=== PATIENT | female | born 1950 | race Two or more races ===

== ENCOUNTER 2021-06-28 13:02 | Emergency (ER) | payer OTHER ==
[~2021-06-28] VITALS: Ht 167.6 cm; Wt 59.0 kg
== END 2021-06-28 19:32 | disposition home or self-care (01) ==
LOC: ER 13:02
DX: M12.562 Traumatic arthropathy, left knee (principal); W18.31XA Fall on same level due to stepping on an object, initial encounter; Y93.9 Activity, unspecified; Y92.019 Unspecified place in single-family (private) house as the place of occurrence of the external cause

== ENCOUNTER 2022-12-01 09:20 | Emergency (ER) | payer OTHER ==
[~2022-12-01] VITALS: Ht 167.6 cm; Wt 59.0 kg
[2022-12-01] MEDS ORDERED: DICLOFENAC SODI75 MG PO (12:28)
== END 2022-12-01 12:33 | disposition home or self-care (01) ==
LOC: ER 09:20
DX: S32.599A Other specified fracture of unspecified pubis, initial encounter for closed fracture (principal)
CPT/HCPCS: 73523; 96372; 99283; J1885